=== PATIENT | female | born 1970 | race Caucasian/White ===

== ENCOUNTER → 2022-07-14 | Outpatient (CLI) | payer OTHER, SELFPAY ==
[2022-07-14 21:41] LABS: Cholesterol 209 mg/dL (200); High Density Lipoprotein 53 mg/dL; Triglycerides 108 mg/dL; Very Low Density Lipoprotein 22 mg/dL (5-40)
== END | disposition home or self-care (01) ==
PROVIDERS: PCP Nurse Practitioner; Referring Provider Nurse Practitioner; Visit Provider Nurse Practitioner
DX: E78.5 Hyperlipidemia, unspecified (principal)
CPT/HCPCS: 80061

== ENCOUNTER → 2022-12-21 | Outpatient (CLI) | payer OTHER, MEDICAID, SELFPAY ==
--- NOTE | 2022-12-21 07:07 | CT_ITS ---
STUDY: CT CHEST WITH CONTRAST REASON FOR EXAM: Female, 52 years old. Mass R lung 5mm R post costophrenic angle RADIATION DOSAGE (If Supplied By Facility): CTDIvol = ( 10.97 ) mGy, DLP = ( 400.14 ) mGycm TECHNIQUE: Transaxial imaging was performed following intravenous administration of IV 100mL Isovue-300. Multiplanar coronal and sagittal images were reformatted. Individualized dose optimization techniques were used for this CT. COMPARISON: No relevant priors. FINDINGS: CHEST Small benign-appearing bilateral axillary lymph nodes. Partially calcified 5 mm nodule in the posterior lateral aspect of the right lower lobe axial image #87. There is no demonstrated pleural abnormality. Normal heart and pericardium. No evidence of coronary artery calcification. Normal mediastinum. Normal hilar regions. Normal unenhanced pulmonary arteries. Normal aorta arch and descending thoracic aorta. There are multi-level degenerative changes of the thoracic spine. Diffuse fatty infiltration of the liver. CT/Chest WITH Contrast IMPRESSION: 5 mm partially calcified nodule in the posterior-lateral aspect of the right lower lobe. Diffuse fatty infiltration of the liver. Electronically Signed: Chemo Modi MD at 9:17 EDT ,
== END | disposition home or self-care (01) ==
LOC: CT 07:05
PROVIDERS: PCP Nurse Practitioner; Referring Provider Nurse Practitioner; Visit Provider Nurse Practitioner
DX: R91.8 Other nonspecific abnormal finding of lung field (principal)
CPT/HCPCS: 71260; Q9967

== ENCOUNTER → 2023-02-11 | Outpatient (CLI) | payer OTHER, MEDICAID, SELFPAY ==
[2023-02-11 22:48] LABS: Absolute Lymphocyte Count 1.69 X10^3/uL (0.83-4.51); Absolute Neutrophil Count 3.8 X10^3/uL (2.0-7.7); Basophil# 0.02 X10^3/uL; Basophil% 0.3 % (0-1); Eosinophil# 0.17 X10^3/uL; Eosinophils% 2.7 % (0-5); Hematocrit 41.7 % (37-47); Hemoglobin 13.6 g/dL (12.0-15.0); Lymphocyte # 1.69 X10^3/ul (0.83-4.51); Lymphocyte % 27.1 % (19-41); Mean Corp Hgb Conc 32.6 g/dL (32-36); Mean Corpuscular Hgb 32.2 pg (27.0-32.0); Mean Corpuscular Volume 98.6 fL (81-99); Mean Platelet Vol. 10.6 fl (6.2-12.0); Monocyte# 0.58 X10^3/uL; Monocyte% 9.3 % (0-10); NRBC Flagged by Analyzer 0 % (0-5); Neutrophil # 3.75 X10^3/uL (2.7-7.7); Neutrophil % 60.1 % (47-70); Platelet Count 260 K/mm3 (150-450); RBC Distribution Width CV 12.4 % (11.6-14.6); RBC Distribution Width SD 44.7 fl (35.1-43.9); Red Blood Count 4.23 M/mm3 (4.2-5.4); White Blood Count 6.2 K/mm3 (4.4-11.0)
[2023-02-11 23:13] LABS: ALB/GLOB Ratio 1.2 RATIO (0.9-2.4); AST(SGOT) 22 U/L (15-37); Alanine Aminotransfer ALT/SGPT 43 U/L (13-56); Albumin, Serum 4.1 g/dL (3.2-5.0); Alkaline Phosphatase 92 U/L (45-117); Anion Gap 4 (5-15); BUN 19 mg/dL (7-18); BUN/Creat Ratio 25.9 RATIO (10-20); Calcium,Total 9.1 mg/dL (8.5-10.1); Chloride 107 mmol/L (98-107); Cholesterol 196 mg/dL (200); Creatinine, Serum 0.73 mg/dL (0.55-1.02); EST Glomerular Filtration Rate 88 mL/min (>60); Est Glom Filt Rate - Afr Amer 106 mL/min (>60); Globulin 3.4 g/dL (2.2-4.2); Glucose 102 mg/dL (74-106); High Density Lipoprotein 50 mg/dL; Protein, Total 7.5 g/dL (6.4-8.2); Sodium Level 139 mmol/L (136-145); Thyroid Stim Hormone (TSH) 1.05 uIU/mL (0.358-3.74); Triglycerides 82 mg/dL; Very Low Density Lipoprotein 16 mg/dL (5-40)
== END | disposition home or self-care (01) ==
PROVIDERS: PCP Nurse Practitioner; Visit Provider Nurse Practitioner
DX: Z00.00 Encounter for general adult medical examination without abnormal findings (principal)
CPT/HCPCS: 80053; 80061; 84443; 85025

== ENCOUNTER → 2023-06-21 | Outpatient (CLI) | payer OTHER, SELFPAY ==
--- OUTSIDE RECORDS SUMMARY | 2023-06-21 21:54 | XMS RPT_ITS | CCD ---
Author Name Unknown Address [address] [place] [address] Organization [facility] Care Team Providers Care Brass Wind Instrument Maker Name Role Phone Unavailable Unavailable Max HAIR, Marifer Unavailable Unavail able Maxime WOLFE, Jose L Unavailable Unavailable Maxime WOLFE, Jose L Unavailable Unavailable Maxime WOLFE, Jose L Unavailable Unavailable Marifer Santana PA-C Unavailable Unavail able Maxime WOLFE, Jose L Unavailable Unavailable Wilmar Hancock MD Unavailable Unavailable Maxime WOLFE, Jose L Unavailable Unavailable Maxime WOLFE, Jose L Unavailable Unavailable Maxime WOLFE, Jose L Unavailable Unavailable Maxime WOLFE, Jose L Unavailable Unavailable Maxime WOLFE, Jose L Unavailable Unavailable Maxime WOLFE, Jose L Unavailable Unavailable Wilmar Hancock MD Unavailable Unavailable Wilmar Hancock MD Unavailable Unavailable Hudson Sullivan Attending Unavailable Albert Swartz Primary Care Unavailable Wilmar Hancock MD Unavailable Unavailable Maxime WOLFE, Jose L Unavailable Unavailable Maxime WOLFE, Jose L Unavailable Unavailable Patricia Zelaya MD Unavailable Chichi vailable Héctor Landry Jr, MD Unavailable Unavailable Héctor Landry Jr, MD Unavailable Unavailable Héctor Landry Jr, MD Unavailable Unavailable Héctor Landry Jr, MD Unavailable Unavailable Maxime WOLFE, Jose L Unavailable Unavailable Héctor Landry Jr, MD Unavailable Unavailable Wilmar Hancock MD Unavailable Unavailable Maxime WOLFE, Jose L Unavailable Unavailable Maxime WOLFE, Jose L Unavailable Unavailable Maxime WOLFE, Jose L Unavailable Unavailable Victorina Edwards Unavailable BilNuris rosario Unavailable Unavailabl e Victorina Edwards Unavailable [phone] Albert Swartz Primary Care Unavailable SHERIDAN ROWE Attending Unavailable Swartz, Albert Andrea Primary Care Unavailable Dominik, Ms. Victorina L Attending Unavailab le Dominik, Ms. Victorina L Primary Care Unavailab harlan Grant, Dr. Ya Attending Unavailabl e Dominik, Ms. Victorina L Primary Care Unavailab harlan Grant, Dr. Ya Admitting Unavailabl jimbo Grant, Dr. Ya Attending Unavailabl jimbo Grant, Dr. Ya Referring Unavailabl e Swartz, Albert Andrea Primary Care Unavailable Kyle, Ms. Rajan Attending Unavailable Dominik, Ms. Victorina L Primary Care Unavailab Nuris Pickens Attending Unavailtony Swartz MD, Jose L Unavailable Unavailable Dominik, Ms. Victorina L Primary Care Unavailab MD JARETT Guzman Attending Unavailable Dominik, Ms. Victorina L Primary Care Unavailab MD JARETT Guzman Attending Unavailable MD JARETT MAGANA Referring Unavailable Dominik, Ms. Victorina L Primary Care Unavailab MD JARETT Guzman Attending Unavailable MD JARETT MAGANA Referring Unavailable Sheridan Rowe Attending Unavailable Sheridan Rowe Referring Unavailable Maxime, Albert Mendez Primary Care Unavailable Sheridan Rowe Referring Unavailable Swartz, Albert Andrea Primary Care Unavailable Sheridan Rowe Attending Unavailable Dominik AIR DEFENSE ARTILLERY OFFICER-CLIENT SOLUTIONS DIRECTOR, Victorina L Primary Care Provide r Swartz, Jose L Primary Care Unavailable Swartz, Jose L Attending Unavailable Swartz, Jose L Primary Care Unavailable Swartz, Jose L Referring Unavailable Marifer Santana Attending Unavailable Patricia Zelaya Attending Unavaabebe angeles Swartz, Jose L Primary Care Unavailable Swartz, Jose L Attending Unavailable Swartz, Jose L Primary Care Unavailable Swartz, Jose L Primary Care Unavailable MassPatricia Zimmer Attending Unavaabebe labharlan Swartz, Jose L Primary Care Unavailable Héctor Landry Jr Attending Unavailable Swartz, Jose L Attending Unavailable Swartz, Jose L Primary Care Unavailable Wilmar Hancock Attending Unavailable Swartz, Jose L Primary Care Unavailable Swartz, Jose L Attending Unavailable Swartz, Jose L Primary Care Unavailable Swartz, Jose L Attending Unavailable Swartz, Jose L Primary Care Unavailable Swartz, Jose L Attending Unavailable Swartz, Jose L Primary Care Unavailable Swartz, Jose L Primary Care Unavailable Swartz, Jose L Attending Unavailable Swartz, Jose L Primary Care Unavailable Jose L Swartz Attending Unavailable JARETT MAGANA Referring Unavailable VICTORINA EDWARDS Primary Care Unavailable VICTORINA EDWARDS Primary Care Unavailable JOCELYNN GONG Attending Unavailable PRADEEP SEALS Referring Unavailable VICTORINA EDWARDS Primary Care Unavailable Max HAIR, Marifer Unavailable Unavail able Allergies Allergy Classification Reported Allergen(s) Allergy Type Date of Onset Reaction(s) Facility (20 sources) Amoxicillin / Clavulanate; Translations: [Augmentin TABS] Drug Allergy Vomiting, Rash [facility] [address] Work Phone: (10 sources) traMADol; Translations: [Tramadol] Drug Allergy [facility] [address] Work Phone: (1 source) Penicillin Drug Allergy Other [facility] (5 sources) Penicillins; Translations: [PENICILLINS] Propensity to adverse reactions Anaphylaxis [facility] Medications Current Medications Medication Drug Class(es) Dates Sig (Normalized) Sig (Original) acetaminophen 325 mg / HYDROcodone bitartrate 5 mg oral tablet (1 source) Opioid Agonist Start: 11-26-2022 End: 11-27-2022 take 1 tablet by mouth every six hours as needed hydrocodone-acetami nophen 5 mg-325 mg oral tablet ; 1 tab(s) orally every 6 hours, As Needed -for severe pain Quantity: 8 Refills: 0 Ordered: 26-Nov-2022 Nuris Wang Start: 26-Nov-2022 End: 27-Nov-2022 Generic Substitution Allowed Comments: Caution federal law prohibits the transfer of this drug to any person other than the person for whom it was prescribed.May cause drowsiness. Alcohol may intensify this effect. Use care when operating dangerous machinery.This product contains acetaminophen. Do not use with any other product containing acetaminophen to prevent possible liver damage.Using more of this medication than prescribed may cause serious breathing problems. Completed/Discontinued Medications Medication Drug Class(es) Dates Sig (Normalized) Sig (Original) atorvastatin 20 mg oral tablet (5 sources) HMG-CoA Reductase Inhibitor Start: 01-29-2022 End: 03-23-2022 take 1 tablet by mouth once daily atorvastatin 20 mg tablet take 1 tablet by oral route every day 20 MG - No Longer Active 24 hr buPROPion hydrochloride 150 mg extended release oral tablet (2 sources) Aminoketone Start: 08-29-2021 End: 10-03-2021 take 1 tablet by mouth once daily bupropion HCl XL 150 mg 24 hr tablet, extended release take 1 tablet by oral route every day 150 MG - No Longer Active busPIRone hydrochloride 7.5 mg oral tablet (7 sources) Start: 01-13-2022 End: 01-28-2022 take 1 tablet by mouth twice daily as needed for anxiety buspirone 7.5 mg tablet TAKE 1 TABLET BY MOUTH TWICE DAILY NEEDED FOR ANXIETY - No Longer Active Problems Active Problems Problem Classification Problem Date Documented Da te Episodic/Chronic Abdominal pain (20 sources) Pain in female pelvis; Translations: [Unspecified symptom associated with female genital organs] Onset: 11-26-2022 Episodic Acute bronchitis (3 sources) Acute bronchitis; Translations: [Acute bronchitis, unspecified] Onset: 05-27-2023 05-27-2023 Episodic Adjustment disorders (20 sources) Reaction to severe stress, unspecified Chronic Allergic reactions (2 sources) Allergy status to penicillin; Translations: [Allergy to penicillin] Onset: 11-27-2022 12-02-2022 Episodic Anxiety disorders (20 sources) Anxiety disorder, unspecified; Translations: [Anxiety] Chronic Asthma (20 sources) Mild persistent asthma, uncomplicated; Translations: [Mild persistent asthma without complication] Onset: 11-27-2022 Chronic Calculus of urinary tract (19 sources) Kidney stone; Translations: [Calculus of kidney] Onset: 11-27-2022 11-26-2022 Episodic Diabetes mellitus without complication (20 sources) Type 2 diabetes mellitus without complications; Translations: [Type 2 diabetes mellitus without complication, without long-term current use of insulin] Onset: 11-27-2022 Chronic Diabetes mellitus without complication (20 sources) Other abnormal glucose; Translations: [Elevated glucose] Episodic Disorders of lipid metabolism (20 sources) Other hyperlipidemia; Translations: [Other hyperlipidemia] Chronic Esophageal disorders (20 sources) Gastro-esophageal reflux disease without esophagitis; Translations: [Gastroesophageal reflux disease, esophagitis presence not specified] Chronic Genitourinary symptoms and ill-defined conditions (4 sources) Other symptoms and signs involving the genitourinary system; Translations: [Nocturia] Onset: 11-26-2022 03-28-2023 Episodic Intestinal obstruction without hernia (1 source) Fecal impaction; Translations: [Fecal impaction] Onset: 12-02-2022 Episodic Menopausal disorders (20 sources) Postmenopausal bleeding; Translations: [Postmenopausal bleeding] Chronic Menstrual disorders (20 sources) Absence of menstruation Chronic Open wounds of extremities (20 sources) Laceration without foreign body, left lower leg, subsequent encounter; Translations: [Laceration without foreign body, left ankle, subsequent encounter] Episodic Osteoarthritis (20 sources) Arthritis of right glenohumeral joint; Translations: [Arthropathy, unspecified, shoulder region] Onset: 04-04-2022 Chronic Other aftercare (1 source) 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; Translations: [nursing home (current) use of oral hypoglycemic drugs] Onset: 11-27-2022 Episodic Other aftercare (1 source) Long-term current use of oral hypoglycemic medication; Translations: [nursing home (current) use of oral hypoglycemic drugs] 12-02-2022 Episodic Other aftercare (1 source) Long-term current use of drug therapy; Translations: [Long-term (current) use of injectable non-insulin antidiabetic drugs] 12-02-2022 Episodic Other circulatory disease (20 sources) Elevated blood-pressure reading, without diagnosis of hypertension Episodic Other connective tissue disease (20 sources) Pain in right leg; Translations: [Pain in lateral right lower extremity] Episodic Other connective tissue disease (20 sources) Neuralgia and neuritis, unspecified; Translations: [Neuralgia] Episodic Other connective tissue disease (20 sources) Myalgia, unspecified site; Translations: [Muscle pain] Episodic Other connective tissue disease (20 sources) Pain in right hand; Translations: [Right hand pain] Episodic Other connective tissue disease (1 source) Other muscle spasm; Translations: [Other muscle spasm] Onset: 11-26-2022 Episodic Other diseases of kidney and ureters (1 source) Hydronephrosis with renal and ureteral calculous obstruction; Translations: [Hydronephrosis with renal and ureteral calculous obstruction] Onset: 11-26-2022 Episodic Other ear and sense organ disorders (20 sources) Otalgia, bilateral; Translations: [Otalgia of both ears] Episodic Other gastrointestinal disorders (20 sources) Other fecal abnormalities; Translations: [Positive colorectal cancer screening using Cologuard test] Episodic Other inflammatory condition of skin (20 sources) Lichen simplex chronicus Episodic Other liver diseases (20 sources) Fatty (change of) liver, not elsewhere classified; Translations: [Fatty liver] Chronic Other lower respiratory disease (20 sources) H/O: asthma; Translations: [Personal history of other diseases of respiratory system] Episodic Other lower respiratory disease (20 sources) Cough; Translations: [Cough] Episodic Other lower respiratory disease (20 sources) Cough Episodic Other lower respiratory disease (1 source) Solitary pulmonary nodule; Translations: [Solitary pulmonary nodule] Onset: 11-26-2022 Episodic Other nervous system disorders (20 sources) Other chronic pain Chronic Other nervous system disorders (20 sources) Attention and concentration deficit; Translations: [Difficulty concentrating] Chronic Other nervous system disorders (20 sources) Disturbance of skin sensation Episodic Other non-traumatic joint disorders (20 sources) Chronic pain of right upper limb; Translations: [Pain in joint, shoulder region] Episodic Other non-traumatic joint disorders (20 sources) Pain in right shoulder; Translations: [Chronic right shoulder pain] Episodic Other non-traumatic joint disorders (20 sources) Pain in unspecified joint; Translations: [Multiple joint pain] Episodic Other non-traumatic joint disorders (20 sources) Pain in right wrist; Translations: [Bilateral wrist pain] Episodic Other non-traumatic joint disorders (20 sources) Pain in left wrist Episodic Other non-traumatic joint disorders (10 sources) Shoulder pain; Translations: [Pain in joint, shoulder region] Episodic Other non-traumatic joint disorders (20 sources) Pain in left knee; Translations: [Chronic pain of left knee] Onset: 04-04-2022 Episodic Other nutritional; endocrine; and metabolic disorders (20 sources) Body mass index (BMI) 39.0-39.9, adult Onset: 12-02-2017 12-02-2017 Chronic Other nutritional; endocrine; and metabolic disorders (20 sources) Body mass index (BMI) 35.0-35.9, adult Chronic Other nutritional; endocrine; and metabolic disorders (20 sources) Body mass index (BMI) 34.0-34.9, adult Chronic Other nutritional; endocrine; and metabolic disorders (20 sources) Body mass index (BMI) 36.0-36.9, adult Chronic Other nutritional; endocrine; and metabolic disorders (20 sources) Body mass index (BMI) 37.0-37.9, adult Chronic Other nutritional; endocrine; and metabolic disorders (20 sources) Body mass index (BMI) 40.0-44.9, adult Chronic Other nutritional; endocrine; and metabolic disorders (2 sources) Body mass index (BMI) 33.0-33.9, adult Chronic Other nutritional; endocrine; and metabolic disorders (20 sources) Abnormal weight gain Episodic Other and delivery including normal (16 sources) Delivery normal; Translations: [Normal delivery] Episodic Past or Other Problems Problem Classification Problem Date Documented Da te Episodic/Chronic Other acquired deformities (1 source) Varus deformity, not elsewhere classified, left knee; Translations: [Varus deformity, not elsewhere classified, left knee] Onset: 04-04-2022 Episodic Other non-traumatic joint disorders (4 sources) Pain in left shoulder; Translations: [Pain in left shoulder] Onset: 04-14-2022 Episodic Other non-traumatic joint disorders (1 source) Effusion, left knee; Translations: [Effusion, left knee] Onset: 04-04-2022 Episodic Residual codes; unclassified (1 source) Sleep disorder, unspecified; Translations: [Sleep disorder, unspecified] Onset: 04-14-2022 Episodic Unclassified (16 sources) Finding of menstrual bleeding; Translations: [Menstruation] Results Test Name Value Interpretation Reference Range Facil ity Vital Signs Date Time Vital Sign Value Performing Clinician Shahram olsen 05-27-2023 16:43-0500 Body height 152.4 cm Jocelynn BEAL Work Phone: [facility] 05-27-2023 16:43-0500 Body mass index (BMI) [Ratio] 33.79 kg/m2 Jocelynn BEAL Work Phone: [facility] 05-27-2023 16:43-0500 Body temperature 97.81 [degF] Jocelynn BEAL Work Phone: [facility] 05-27-2023 16:43-0500 Body weight 78.47 kg Jocelynn Gong AIR DEFENSE ARTILLERY OFFICER-CLIENT SOLUTIONS DIRECTOR Work Phone: [facility] 05-27-2023 16:43-0500 Diastolic blood pressure 81 mm[Hg] Jocelynn Gong AIR DEFENSE ARTILLERY OFFICER-CLIENT SOLUTIONS DIRECTOR Work Phone: [facility] 05-27-2023 16:43-0500 Heart rate 92 /min Jocelynn Gong AIR DEFENSE ARTILLERY OFFICER-CLIENT SOLUTIONS DIRECTOR Work Phone: [facility] 05-27-2023 16:43-0500 Respiratory rate 16 /min Jocelynn Corralesta AIR DEFENSE ARTILLERY OFFICER-CLIENT SOLUTIONS DIRECTOR Work Phone: [facility] 05-27-2023 16:43-0500 SaO2% (BldA) [Mass fraction] 96 % Jocelynn Gong AIR DEFENSE ARTILLERY OFFICER-CLIENT SOLUTIONS DIRECTOR Work Phone: [facility] 05-27-2023 16:43-0500 Systolic blood pressure 118 mm[Hg] Jocelynn Gong AIR DEFENSE ARTILLERY OFFICER-CLIENT SOLUTIONS DIRECTOR Work Phone: [facility] 05-20-2023 09:19-0500 Body height 154.18 cm Marifer Santana PA-C [facility] 05-20-2023 09:19-0500 Body mass index (BMI) [Ratio] 33.66 kg/m2 Marifer Santana PA-C [facility] 05-20-2023 09:19-0500 Body temperature 97.3 [degF] Marifer Santana PA-C [facility] 05-20-2023 09:19-0500 Body weight 80.01 kg Marifer Santana PA-C [facility] 05-20-2023 09:19-0500 Diastolic blood pressure 82 mm[Hg] Marifer Santana PA-C [facility] 05-20-2023 09:19-0500 Heart rate 89 /min Marifer Santana PA-C [facility] 05-20-2023 09:19-0500 SaO2% (BldA) [Mass fraction] 98 % Marifer Santana PA-C [facility] 05-20-2023 09:19-0500 Systolic blood pressure 122 mm[Hg] Marifer Santana PA-C [facility] 12-03-2022 09:09-0400 Body mass index (BMI) [Ratio] 33.49 kg/m2 Victorinameli Edwards Work Phone: [facility] Work Phone: 12-03-2022 09:09-0400 Body surface area Derived from formula 1.79 m2 Victorinameli Edwards Work Phone: [facility] Work Phone: 12-03-2022 09:09-0400 Body weight 80.4 kg Victorinameli Edwards Work Phone: [facility] Work Phone: 11-27-2022 10:30-0400 Body height 153 cm Jarett Grant MD MPH Work Phone: [facility] 11-27-2022 10:30-0400 Body mass index (BMI) [Ratio] 33.66 kg/m2 Jarett Garnt MD MPH Work Phone: [facility] 11-27-2022 10:30-0400 Body weight 78.8 kg Jarett Grant MD MPH Work Phone: [facility] 11-26-2022 16:30-0400 Diastolic blood pressure 67 mm[Hg] Victorina Edwards Other Phone: [facility] 11-26-2022 16:30-0400 Heart rate 80 /min Victorina Edwards Other Phone: [facility] 11-26-2022 16:30-0400 Respiratory rate 14 /min Victorina Edwards Other Phone: [facility] 11-26-2022 16:30-0400 SaO2% (BldA) [Mass fraction] 97 % Victorina Edwards Other Phone: [facility] 11-26-2022 16:30-0400 Systolic blood pressure 129 mm[Hg] Victorina Edwards Other Phone: [facility] 11-26-2022 13:31-0400 Body height 152.4 cm Victorina Edwards Other Phone: [facility] 11-26-2022 13:31-0400 Body temperature 97.7 [degF] Victorina Edwards Other Phone: [facility] 11-26-2022 13:31-0400 Body weight 78.5 kg Victorina Edwards Other Phone: [facility] 05-13-2022 08:44-0500 Body temperature 97.1 [degF] Sheridan Rowe APRN-CLIENT SOLUTIONS DIRECTOR Work Phone: [facility] [address] Work Phone: 04-14-2022 10:51-0400 Body height 154.94 cm Sheridan Rowe APRN-CLIENT SOLUTIONS DIRECTOR Work Phone: [facility] [address] Work Phone: 04-14-2022 10:51-0400 Body mass index (BMI) [Ratio] 36.09 kg/m2 Sheridan Rowe APRN-CLIENT SOLUTIONS DIRECTOR Work Phone: [facility] [address] Work Phone: 04-14-2022 10:51-0400 Body surface area Derived from formula 1.85 m2 Sheridan Rowe APRN-CLIENT SOLUTIONS DIRECTOR Work Phone: [facility] [address] Work Phone: 04-14-2022 10:51-0400 Body temperature 97.6 [degF] Sheridan Rowe APRN-CLIENT SOLUTIONS DIRECTOR Work Phone: [facility] [address] Work Phone: 04-14-2022 10:51-0400 Body weight 86.64 kg Sheridan Rowe APRN-CLIENT SOLUTIONS DIRECTOR Work Phone: [facility] [address] Work Phone: 01-28-2022 10:42-0400 Body height 154.18 cm Jose L Swartz MD [facility] 01-28-2022 10:42-0400 Body mass index (BMI) [Ratio] 36.64 kg/m2 Jose L Swartz MD [facility] 01-28-2022 10:42-0400 Body temperature 96.8 [degF] Jose L Swartz MD [facility] 01-28-2022 10:42-0400 Body weight 87.09 kg Jose L Swartz MD [facility] 01-28-2022 10:42-0400 Diastolic blood pressure 82 mm[Hg] Jose L Swartz MD [facility] 01-28-2022 10:42-0400 Heart rate 88 /min Jose L Swartz MD [facility] 01-28-2022 10:42-0400 SaO2% (BldA) [Mass fraction] 94 % Jose L Swartz MD [facility] 01-28-2022 10:42-0400 Systolic blood pressure 135 mm[Hg] Jose L Swartz MD [facility] 10-30-2021 16:00-0400 Body height 154.18 cm Jose L Swartz MD [facility] 10-30-2021 16:00-0400 Body mass index (BMI) [Ratio] 36.75 kg/m2 Jose L Swartz MD [facility] 10-30-2021 16:00-0400 Body temperature 97.5 [degF] Jose L Swartz MD [facility] 10-30-2021 16:00-0400 Body weight 87.36 kg Jose L Swartz MD [facility] 10-30-2021 16:00-0400 Diastolic blood pressure 60 mm[Hg] Jose L Swartz MD [facility] 10-30-2021 16:00-0400 Heart rate 86 /min Jose L Swartz MD [facility] 10-30-2021 16:00-0400 SaO2% (BldA) [Mass fraction] 96 % Jose L [facility]z MD [facility] 10-30-2021 16:00-0400 Systolic blood pressure 125 mm[Hg] Jose L Swartz MD [facility] 05-28-2021 09:47-0500 Body height 154.94 cm Yessi Leger DO Work Phone: [employer] [address] Work Phone: 05-28-2021 09:47-0500 Body mass index (BMI) [Ratio] 36.16 kg/m2 Yessi Edwardsa DO Work Phone: [facility] [address] Work Phone: 05-28-2021 09:47-0500 Body surface area Derived from formula 1.85 m2 Yessi Edwardsa DO Work Phone: [facility] [address] Work Phone: 05-28-2021 09:47-0500 Body temperature 97.1 [degF] Yessi Edwardsa DO Work Phone: [facility] [address] Work Phone: 05-28-2021 09:47-0500 Body weight 86.81 kg Yessi Leger DO Work Phone: [facility] [address] Work Phone: 05-28-2021 09:47-0500 Diastolic blood pressure 86 mm[Hg] Yessi Edwardsa DO Work Phone: [facility] [address] Work Phone: 05-28-2021 09:47-0500 Systolic blood pressure 128 mm[Hg] Yessi Edwardsa DO Work Phone: [facility] [address] Work Phone: 04-23-2021 09:33-0500 Body height 156.84 cm Maikol Fischer DO Work Phone: [facility] [address] Work Phone: 04-23-2021 09:33-0500 Body mass index (BMI) [Ratio] 34.63 kg/m2 Maikol Fischer DO Work Phone: [facility] [address] Work Phone: 04-23-2021 09:33-0500 Body surface area Derived from formula 1.86 m2 Maikol Fischer DO Work Phone: [facility] [address] Work Phone: 04-23-2021 09:33-0500 Body temperature 97.7 [degF] Maikol Fiscehr DO Work Phone: [facility] [address] Work Phone: 04-23-2021 09:33-0500 Body weight 85.19 kg Maikol Fischer DO Work Phone: [facility] [address] Work Phone: 03-20-2021 15:49-0400 Body height 156.21 cm Maikol Fischer DO Work Phone: [facility] [address] Work Phone: 03-20-2021 15:49-0400 Body mass index (BMI) [Ratio] 33.83 kg/m2 Maikol Fischer DO Work Phone: [facility] [address] Work Phone: 03-20-2021 15:49-0400 Body surface area Derived from formula 1.83 m2 Maikol Fischer DO Work Phone: [facility] [address] Work Phone: 03-20-2021 15:49-0400 Body temperature 98.2 [degF] Maikol Fischer DO Work Phone: [facility] [address] Work Phone: 03-20-2021 15:49-0400 Body weight 82.56 kg Maikol Fischer DO Work Phone: [facility] [address] Work Phone: 03-20-2021 15:49-0400 Diastolic blood pressure 72 mm[Hg] Maikol Fischer DO Work Phone: [facility] [address] Work Phone: 03-20-2021 15:49-0400 Heart rate 79 /min Maikol Fischer DO Work Phone: [facility] [address] Work Phone: 03-20-2021 15:49-0400 Systolic blood pressure 139 mm[Hg] Maikol Fischer DO Work Phone: [facility] 300 Work Phone: 03-04-2021 15:28-0400 Body height 156.21 cm Maikol Fischer DO Work Phone: [facility] 300 Work Phone: 03-04-2021 15:28-0400 Body mass index (BMI) [Ratio] 34.04 kg/m2 Maikol Fischer DO Work Phone: [facility] 300 Work Phone: 03-04-2021 15:28-0400 Body surface area Derived from formula 1.83 m2 Maikol Fischer DO Work Phone: [facility] 300 Work Phone: 03-04-2021 15:28-0400 Body temperature 97.5 [degF] Maikol Fischer DO Work Phone: [facility] 300 Work Phone: 03-04-2021 15:28-0400 Body weight 83.07 kg Maikol Fischer DO Work Phone: [facility] 300 Work Phone: Encounters Encounter Date Encounter Type Care Provider Facility Start: 05-27-2023 End: 05-27-2023 ambulatory [facility] Start: 05-27-2023 End: 05-27-2023 Office outpatient visit 15 minutes Jocelynn BEAL Work Phone: [facility] Procedures Date Procedure Procedure Detail Performing Clinician Start: 05-27-2023 POCT INFLUENZA A/B JARETT GRANT Start: 05-27-2023 POCT RESPIRATORY SYN CYTIAL VIRUS JARETT GRANT Start: 05-27-2023 POCT BD VERITOR COVID-19 AG JARETT GRANT Start: 05-27-2023 POCT GROUP A STREPTO COCCUS, PCR JARETT GRANT Start: 05-27-2023 End: 05-27-2023 Iaadiadoo influenza Jocelynn MORAN INFORMATION TECHNOLOGY ARCHITECT Work Phone: Start: 05-27-2023 SARS-CoV-2 (COVID-19 ) Ag [Presence] in Respiratory specimen by Rapid immunoassay Jocelynn BEAL Work Phone: Start: 05-20-2023 End: 05-20-2023 Arthrocentesis aspir&/inj small jt/bursa w/o us Marifer Santana PA-C Start: 05-20-2023 End: 05-20-2023 BP scrn perf rec interval Marifer irving PA-C Start: 05-20-2023 End: 05-20-2023 Calc BMI abv up kenneth f/u Marifer irving PA-C Start: 05-20-2023 End: 05-20-2023 Docrev cur meds by ketty Santana PA-C Start: 05-20-2023 End: 05-20-2023 Mammography Marifer Riley A-C Start: 05-20-2023 End: 05-20-2023 Taking statin or rec'd order Marifer Santana PA-C Start: 05-20-2023 End: 05-20-2023 Tobacco Screening, Non-smoker Marifer Santana PA-C Start: 05-20-2023 End: 05-20-2023 Triamcinolone acet inj JUVE barnett PA-C Start: 03-31-2023 XR ABDOMEN 1 VIEW JARETT FRANKLIN GRANT Start: 03-18-2023 US RENAL COMPLETE JARETT FRANKLIN GRANT Start: 03-18-2023 Us retroperitoneal r eal time w/image complete Jarett Grant MD MPH Work Phone: Start: 11-27-2022 X-ray urinary tract exam with contrast material Jarett Grant MD MPH Work Phone: Start: 11-27-2022 SURGICAL PATHOLOGY RESULTS Jarett Grant MD MPH Work Phone: Start: 11-27-2022 Glucose [Mass/volume ] in Serum or Plasma Jarett Grant MD MPH Work Phone: Start: 10-12-2022 Mammography Akira 1 Start: 01-28-2022 End: 01-28-2022 Behav assmt w/score & docd/stand instrument Jose L Swartz MD Start: 01-28-2022 End: 01-28-2022 BP scrn perf rec interval Jose L Swartz MD Start: 01-28-2022 End: 01-28-2022 Collection venous blood venipuncture Jose L Swartz MD Start: 01-28-2022 End: 01-28-2022 Docrev cur meds by ketty Swartz MD Start: 01-28-2022 End: 01-28-2022 HbA1c For DM >=7 And< 8 Jose L Swartz MD Start: 01-28-2022 End: 01-28-2022 Hemoglobin glycosylated a1c Jose L Swartz MD Start: 01-28-2022 End: 01-28-2022 LDL For DM =or>130mg/dl Jose L Swartz MD Start: 01-28-2022 End: 01-28-2022 Lipid panel Jose L Swartz MD Start: 01-28-2022 End: 01-28-2022 Mammography Jose L Swartz MD Start: 01-28-2022 End: 01-28-2022 Scr dep neg, no plan reqd Jose L Swartz MD Start: 01-28-2022 End: 01-28-2022 Tobacco Screening, Non-smoker Jose L Swartz MD Start: 01-28-2022 End: 01-28-2022 Urine albumin quantitative Jose L Swartz MD Start: 10-30-2021 End: 10-30-2021 Arthrocentesis aspir&/inj small jt/bursa w/o us Marifer Santana PA-C Start: 10-30-2021 End: 10-30-2021 BP scrn perf rec interval Marifer irving PA-C Start: 10-30-2021 End: 10-30-2021 Calc BMI abv up kenneth f/u Marifer irving PA-C Start: 10-30-2021 End: 10-30-2021 Docrev cur meds by ketty Santana PA-C Start: 10-30-2021 End: 10-30-2021 Therapeutic prophylactic/dx injection subq/im Marifer Santana PA-C Start: 10-30-2021 End: 10-30-2021 Triamcinolone acet inj NOS Marifer barnett PA-C Start: 10-03-2021 End: 10-03-2021 Docrev cur meds by ketty Swartz MD Start: 10-03-2021 End: 10-03-2021 Tobacco Screening, Non-smoker Jose L Swartz MD Start: 08-29-2021 End: 08-29-2021 Docrev cur meds by ketty Santana PA-C Start: 08-29-2021 End: 08-29-2021 Taking statin or rec'd order Marifer Santana PA-C Start: 08-29-2021 End: 08-29-2021 Tobacco Screening, Non-smoker Marifer Santana PA-C Start: 05-01-2021 End: 05-01-2021 BP scrn perf rec interval Marifer irving PA-C Start: 05-01-2021 End: 05-01-2021 Calc BMI abv up kenneth f/u Marifer irving PA-C Start: 05-01-2021 End: 05-01-2021 Collection venous blood venipuncture Marifer Santana PA-C Start: 05-01-2021 End: 05-01-2021 Docrev cur meds by ketty Santana PA-C Start: 05-01-2021 End: 05-01-2021 HbA1c For DM <7.0% Marifer Strattonbarneyericka P A-C Start: 05-01-2021 End: 05-01-2021 Hemoglobin glycosylated a1c Marifer da silvabenoit PA-C Start: 04-29-2021 End: 04-29-2021 Docrev cur meds by [facility] italo Santana PA-C Start: 04-29-2021 End: 04-29-2021 Pt inelig BMI calculation Marifer irving PA-C Start: 04-29-2021 End: 04-29-2021 Tobacco Screening, Non-smoker Marifer Strattonbarneyericka PA-C Start: 02-04-2021 End: 02-04-2021 Behav assmt w/score & docd/stand instrument Marifer Strattonbarneyericka PA-C Start: 02-04-2021 End: 02-04-2021 BP scrn perf rec interval Marifer irving PA-C Start: 02-04-2021 End: 02-04-2021 Calc BMI abv up kenneth f/u Marifer irving PA-C Start: 02-04-2021 End: 02-04-2021 Docrev cur meds by [facility] Marifer ORNELAS-C Start: 02-04-2021 End: 02-04-2021 HbA1c For DM >=7 And< 8 Marifer Strattonbarneylenore an PA-C Start: 02-04-2021 End: 02-04-2021 LDL For DM 100-129mg/dl Marifer Strattonbarneylenore an PA-C Start: 02-04-2021 End: 02-04-2021 Scr dep neg, no plan reqd Marifer irving PA-C Start: 02-04-2021 End: 02-04-2021 Tobacco Screening, Non-smoker Marifer Santana PA-C Start: 01-10-2021 End: 01-10-2021 BP scrn perf rec interval Marifer villafanaan PA-C Start: 01-10-2021 End: 01-10-2021 Calc BMI abv up kenneth f/u Marifer villafanaan PA-C Start: 01-10-2021 End: 01-10-2021 Docrev cur meds by ketty Santana PA-C Start: 01-10-2021 End: 01-10-2021 Taking statin or rec'd order Marifer Santana PA-C Start: 01-10-2021 End: 01-10-2021 Tobacco Screening, Non-smoker Marifer Santana PA-C Start: 12-20-2020 End: 12-20-2020 Arthrocentesis aspir&/inj major jt/bursa w/o us Marifer Santana PA-C Start: 12-20-2020 End: 12-20-2020 BP scrn perf rec interval Marifer irving PA-C Start: 12-20-2020 End: 12-20-2020 Calc BMI abv up kenneth f/u Marifer irving PA-C Start: 12-20-2020 End: 12-20-2020 Docrev cur meds by ketty Santana PA-C Start: 12-20-2020 End: 12-20-2020 Therapeutic prophylactic/dx injection subq/im Marifer Santana PA-C Start: 12-20-2020 End: 12-20-2020 Tobacco Screening, Non-smoker Marifer Santana PA-C Start: 12-20-2020 End: 12-20-2020 Triamcinolone acet inj NOS Marifer barnett PA-C Start: 12-20-2019 End: 12-20-2019 Behav assmt w/score & docd/stand instrument Marifer Santana PA-C Start: 12-20-2019 End: 12-20-2019 Docrev cur meds by ketty Santana PA-C Start: 12-20-2019 End: 12-20-2019 HbA1c For DM <7.0% Marifer Leonard Start: 12-20-2019 End: 12-20-2019 LDL For DM 100-129mg/dl Marifer laboy PA-C Start: 12-20-2019 End: 12-20-2019 Mammography Marifer Leonard Start: 12-20-2019 End: 12-20-2019 PAP Reviewed Marifer Leonard Start: 12-20-2019 End: 12-20-2019 Pt inelig BMI calculation Marifersheila Strattonwhitley irving PA-C Start: 12-20-2019 End: 12-20-2019 Scr dep neg, no plan reqd Marifer Cortez irving PA-C Start: 12-20-2019 End: 12-20-2019 Tobacco Screening, Non-smoker Marifer ORNELAS-C Start: 01-11-2019 End: 01-11-2019 Assay of ferritin Marifer Riley A-C Start: 01-11-2019 End: 01-11-2019 Collection venous blood venipuncture Marifer ORNELAS-C Start: 01-11-2019 End: 01-11-2019 Hepatic function panel Marifer frausto PA-C Start: 12-22-2018 End: 12-22-2018 Collection venous blood venipuncture Marifer ORNELAS-C Start: 12-22-2018 End: 12-22-2018 Glucose quantitative blood xcpt reagent strip Marifer Santana PA-C Start: 12-22-2018 End: 12-22-2018 HbA1c For DM 7.0-9.0% Marifer ORNELAS-C Start: 12-14-2018 End: 12-14-2018 HbA1c For DM 7.0-9.0% Marifer ORNELAS-C Start: 12-13-2018 End: 12-13-2018 Assay of thyroid stimulating hormone tsh Marifer ORNELAS-C Start: 12-13-2018 End: 12-13-2018 BP scrn perf rec interval Marifer irving PA-C Start: 12-13-2018 End: 12-13-2018 Calc BMI abv up kenneth f/u Marifer Cortez irving PA-C Start: 12-13-2018 End: 12-13-2018 Collection venous blood venipuncture Marifer ORNELAS-C Start: 12-13-2018 End: 12-13-2018 Depression screen annual Marifer ORNELAS-C Start: 12-13-2018 End: 12-13-2018 Docrev cur meds by ketty ORNELAS-Tanner Start: 12-13-2018 End: 12-13-2018 LDL For DM =or>130mg/dl Marifer laboy PA-C Start: 12-13-2018 End: 12-13-2018 Lipid panel Marifer Santana Rosemary A-C Start: 12-13-2018 End: 12-13-2018 Mammography Marifer Santana Rosemary A-C Start: 12-13-2018 End: 12-13-2018 Scr dep neg, no plan reqd Marifer Toro broderickan PA-C Start: 12-13-2018 End: 12-13-2018 Tobacco Screening, Non-smoker Marifersheila Strattontomasa PA-C Start: 09-16-2018 End: 09-16-2018 Iadna streptococcus group a amplified probe tq Marifer Strattontomasa PA-C Start: 09-16-2018 End: 09-16-2018 Obtaining screen pap smear Marifer Strattonbarney barnett PA-C Start: 12-02-2017 End: 12-02-2017 BP scrn perf rec interval Marifer Strattonbarneyjimbo maria fernanda PA-C Start: 12-02-2017 End: 12-02-2017 Calc BMI abv up kenneth f/u Marifer Strattonbarneyjimbo maria fernanda PA-C Start: 12-02-2017 End: 12-02-2017 Depression screen annual Marifer Strtatonbarneyjacky ronaldo PA-C Start: 12-02-2017 End: 12-02-2017 Docrev cur meds by ketty Larryee Max PA-C Start: 12-02-2017 End: 12-02-2017 Flu immunize order/admin Marifer higgins PA-C Start: 12-02-2017 End: 12-02-2017 LDL For DM =or>130mg/dl Marifersheila Strattonfiorella an PA-C Start: 12-02-2017 End: 12-02-2017 PAP Reviewed Marifer Santana Rosemary A-C Start: 12-02-2017 End: 12-02-2017 Scr dep neg, no plan reqd Marifer Strattonbarneyjimbo rman PA-C Start: 12-02-2017 End: 12-02-2017 Tobacco Screening, Non-smoker Marifer Max PA-C Start: 12-18-2016 End: 12-18-2016 Iadna streptococcus group a amplified probe tq Marifer Santana PA-C Start: 05-12-2016 End: 05-12-2016 Blood count complete auto&auto difrntl wbc Marifer Santana PA-C Start: 05-12-2016 End: 05-12-2016 BP scrn perf rec interval Marifer Cortez irving PA-C Start: 05-12-2016 End: 05-12-2016 Calc BMI abv up kenneth f/u Marifer Strattonwhitley irving PA-C Start: 05-12-2016 End: 05-12-2016 Collection venous blood venipuncture Marifer ORNELAS-C Start: 05-12-2016 End: 05-12-2016 Colonoscopy Reviewed Marifer Santana PA-C Start: 05-12-2016 End: 05-12-2016 Cano BP less 90 Marifer Riley A-C Start: 05-12-2016 End: 05-12-2016 Docrev cur meds by ketty ORNELAS-C Start: 05-12-2016 End: 05-12-2016 LDL For DM =or>130mg/dl Marifer laboy PA-C Start: 05-12-2016 End: 05-12-2016 Mammography Marifer Riley A-C Start: 05-12-2016 End: 05-12-2016 PAP Reviewed Marifer Riley A-C Start: 05-12-2016 End: 05-12-2016 Pneuomvax Previously Given Marifer ORNELAS-C Start: 05-12-2016 End: 05-12-2016 Scr dep neg, no plan reqd Marifer irving PA-C Start: 05-12-2016 End: 05-12-2016 Sys BP less 140 Marifer Santana P A-C Start: 05-12-2016 End: 05-12-2016 Tobacco Screening, Non-smoker Marifer Santana PA-C Start: 04-09-2016 End: 04-09-2016 Obtaining screen pap smear Marifer barnett PA-C Start: 04-09-2016 End: 04-09-2016 Smr prim src wet mount nfct agt Marifer Santana PA-C Start: 04-08-2016 End: 04-08-2016 Assay of magnesium Marifer Santana P A-C Start: 04-08-2016 End: 04-08-2016 Collection venous blood venipuncture Marifer Santana PA-C Start: 03-04-2015 End: 03-04-2015 Obtaining screen pap smear Marifer barnett MARCELTanner Start: 03-04-2015 End: 03-04-2015 Smr prim src wet mount nfct agt Marifer Santana JOHNSONJalen Start: 12-05-2014 End: 12-05-2014 Medical Records Marifer Riley A-C Start: 05-14-2014 End: 05-14-2014 Basic metabolic panel calcium total Marifer Santana JOHNSON-Tanner Start: 05-14-2014 End: 05-14-2014 Collection venous blood venipuncture Marifer Santana JOHNSONJalen Start: 03-28-2014 End: 03-28-2014 Medical Records Marifer Riley A-C Start: 02-26-2014 End: 02-26-2014 Obtaining screen pap smear Marifer barnett LAXMI Arthroscopy of knee Maikol Fischer DO Work Phone: Plan of Treatment Date Care Activity Detail Author Start: 04-12-2029 DTaP/Tdap/Td Vaccines (3 - Td or Tdap) DTaP/Tdap/Td Vaccines (3 - Td or Tdap) [facility] Start: 10-13-2023 Screening for malignant neoplasm of breast Mammogram [facility] Start: 10-13-2023 End: 10-13-2023 Patient encounter procedure 10/13/2023 10:45 AM EDT Office Visit [place] [id number] [id number] Pradeep Seals MD [address] [place] [id number] [facility] Start: 03-22-2023 FUV, Provider: Jarett Magana, Status: Pen, Time: 3:00 PM FUV, Provider: Jarett Magana, Status: Pen, Time: 3:00 PM [id number] Work Phone: Start: 02-12-2023 Influenza vaccination Influenza Vaccine (#1) [facility] Start: 01-29-2023 [facility] [employer] Work Phone: Start: 12-03-2022 CYSTOSCOPY, Provider: Jarett Magana, Status: Pen, Time: 8:45 AM CYSTOSCOPY, Provider: Jarett Magana, Status: Pen, Time: 8:45 AM [id number] Work Phone: Start: 08-21-2022 Amanda Gill [employer] Work Phone: Start: 08-03-2022 Amanda Gill [employer] Work Phone: Start: 07-24-2022 End: 07-24-2022 Medical [employer] Start: 06-04-2022 INJECTION, Provider: Sheridan Rowe, Status: Pen, Time: 1:00 PM INJECTION, Provider: Sheridan Rowe, Status: Pen, Time: 1:00 PM [facility] 300 Work Phone: Start: 05-13-2022 FUV, Provider: Sheridan Rowe, Status: Pen, Time: 8:30 AM FUV, Provider: Sheridan Rowe, Status: Pen, Time: 8:30 AM [facility] 300 Work Phone: Start: 05-11-2022 FUV, Provider: Sheridan Rowe, Status: Pen, Time: 11:30 AM FUV, Provider: Sheridan Rowe, Status: Pen, Time: 11:30 AM [facility] 300 Work Phone: Start: 04-30-2022 Amanda Gill [employer] Work Phone: Start: 03-31-2022 Patient referral Referrals: Orthopedics. [facility]. [facility] [employer] Start: 03-17-2022 Patient referral Referrals: Genrl Surg. Dr. Sullivan. [facility] [employer] [facility] Start: 01-28-2022 Patient referral [facility] [employer] Start: 01-15-2022 Amanda Gill Medical [facility] [employer] Work Phone: Start: 11-14-2021 Amanda Gill Medical [employer] Work Phone: Start: 10-03-2021 Amanda Gill Medical [facility] [employer] [employer] [facility] [facility] Work Phone: Start: 09-11-2021 FUV, Provider: Maikol Fischer, Status: Pen, Time: 9:30 AM FUV, Provider: Maikol Fischer, Status: Pen, Time: 9:30 AM [facility] Work Phone: Start: 07-30-2021 COVID-19 Vaccine (2 - Booster for Kellen series) COVID-19 Vaccine (2 - Booster for Kellen series) [facility] Start: 07-24-2021 FUV, Provider: Maikol Fischer, Status: Pen, Time: 9:30 AM FUV, Provider: Maikol Fischer, Status: Pen, Time: 9:30 AM [facility] 300 Work Phone: Start: 06-16-2021 FUV, Provider: Yessi Leger, Status: Pen, Time: 8:45 AM FUV, Provider: Yessi Leger, Status: Pen, Time: 8:[address] Work Phone: Start: 05-01-2021 [facility] Start: 05-01-2021 Patient referral Referrals: Gynecology. Dr. Solange Leger. [facility] [employer] Start: 03-20-2021 FUV, Provider: Maikol Fischer, Status: Pen, Time: 3:30 PM FUV, Provider: Maikol Fischer, Status: Pen, Time: 3:30 PM [facility] Work Phone: Start: 02-04-2021 Patient referral Referrals: Orthopedics. Maikol Fischer [facility]. Eval[facility] and [facility] [employer] Start: 02-04-2021 MICROALBUMIN ([id number]), Sent on: [facility] Start: 02-03-2021 PTRECHADUL, Provider: Jona Connolly, Status: Pen, Time: 4:15 PM PTRECHADUL, Provider: Jona Connolly, Status: Pen, Time: 4:15 PM [facility]: Start: 01-30-2021 PTFUADULT4, Provider: Shay Dotson, Status: Pen, Time: 4:15 PM PTFUADULT4, Provider: Shay Dotson, Status: Pen, Time: 4:15 PM [facility] Work [facility]: Start: 01-28-2021 PTFUADULT4, Provider: Shay Dotson, Status: Pen, Time: 4:15 PM PTFUADULT4, Provider: Shay Dotson, Status: Pen, Time: 4:15 PM [facility] Work [facility]: Start: 01-22-2021 PTFUADULT4, Provider: Isis Clark, Status: Pen, Time: 10:45 AM PTFUADULT4, Provider: Isis Clark, Status: Pen, Time: 10:45 AM [facility] Work Phone: Start: 01-20-2021 PTFUADULT4, Provider: Dhara Jefferson, Status: Pen, Time: 2:00 PM PTFUADULT4, Provider: Dhara Jefferson, Status: Pen, Time: 2:00 PM [facility] Work Phone: Start: 01-15-2021 PTFUADULT4, Provider: Cheyanne Self, Status: Pen, Time: 11:30 AM PTFUADULT4, Provider: Cheyanne Self, Status: Pen, Time: 11:30 AM [facility] Work Phone: Start: 01-13-2021 PTFUADULT4, Provider: Dhara Jefferson, Status: Pen, Time: 10:30 AM PTFUADULT4, Provider: Dhara Jefferson, Status: Tunde, Time: 10:30 AM [facility] Work Phone: Start: 12-20-2020 Patient referral Referrals: Physical Therapy. Evaluate and treat [facility] [employer] Start: 12-20-2019 Patient referral SCR MAMMO BI INCL CAD [facility] [employer] Start: 12-20-2019 Microalb/Creat Ratio, Neftaly Ur ([id number]), Sent on: [facility] [employer] Start: 12-13-2018 Patient referral Referrals: Surgery. [place] [facility] [email or web address] [facility] Start: 12-02-2017 Lifestyle education regarding diet Lifestyle education regarding diet [facility] [email or web address] [facility] Start: 05-12-2016 Patient referral X-ray Of Wrist Bilateral [facility] [employer] Start: 01-12-2014 Patient referral Screening Mammo Bilateral [facility] [email or web address] [facility] Start: 1989 Screening for malignant neoplasm of cervix [facility] Start: 1987 Urine screening for protein Diabetes: Urine Protein Screening [facility] Start: 1986 Hepatitis C screening Hepatitis C Screening [facility] Start: 1978 Diabetic foot examination Diabetes: Foot Exam [facility] Start: 1978 Glaucoma screening Diabetes: Retinopathy Screening [facility] Start: 1974 Pneumococcal Vaccine: Pediatrics (0 to 5 Years) and At-Risk Patients (6 to 64 Years) (1 - PCV) Pneumococcal Vaccine: Pediatrics (0 to 5 Years) and At-Risk Patients (6 to 64 Years) (1 - PCV) [facility] Start: 1969 MMR Vaccines (1 of 1 - Standard series) MMR Vaccines (1 of 1 - Standard series) [facility] Start: 1968 Hemoglobin A1c measurement Diabetes: Hemoglobin A1C [facility] Start: 1968 Hepatitis B Vaccines (1 of 3 - 3-dose series) Hepatitis B Vaccines (1 of 3 - 3-dose series) [facility] Start: 1968 HIV screening HIV Screening [facility] Start: 1968 Lipid panel Lipid Panel [facility] Start: 1968 Screening for malignant neoplasm of colon [facility] Start: 1968 Yearly Adult Physical Yearly Adult Physical [facility] Immunizations Immunization Date Immunization Notes Care Provider Brook flahertylisset 12-17-2021 zoster vaccine, ck [facility] Payers Date Payer Category Payer Unknown [id number] 2019 Medicaid [id number] 2019 Unknown 1968 Unknown [id number] 2.16.8 40.1.731706.3.579.2.9 1968 Unknown [id number] 2.16.8 40.1.028427.3.579.2.9 1968 Unknown [id number] 2.16.8 40.1.197196.3.579.2.9 1968 Unknown [id number] 2.16.8 40.1.749364.3.579.2.1069 1968 Unknown [id number] 2.16.8 40.1.718333.3.579.2.9 1968 Unknown [id number] 2.16.8 40.1.546598.3.579.2.9 1968 Unknown [id number] 2.16. 840.1.840432.3.579.2.356 1968 Unknown [id number] 2.16. 840.1.468994.3.579.2.356 1968 Unknown [id number] 2.16. 840.1.240942.3.579.2.356 1968 Unknown [id number] 2.16. 840.1.161573.3.579.2.356 1968 Unknown [id number] 2.16. 840.1.023452.3.579.2.356 1968 Unknown [id number] 2.16.84 0.1.120133.3.579.2.1078 1968 Unknown [id number] 2.16.84 0.1.478199.3.579.2.1078 1968 Unknown [id number] 2.16.84 0.1.649716.3.579.2.1078 1968 Unknown [id number] 2.16.84 0.1.384355.3.579.2.1078 1968 Unknown [id number] 2.16.84 0.1.981838.3.579.2.1078 1968 Unknown [id number] 2.16.84 0.1.753326.3.579.2.1078 1968 Unknown [id number] 2.16.84 0.1.653097.3.579.2.1078 1968 Unknown [id number] 2.16.84 0.1.311603.3.579.2.1078 1968 Unknown [id number] 2.16.84 0.1.401516.3.579.2.1078 1968 Unknown [id number] 2.16.84 0.1.487867.3.579.2.1078 1968 Unknown [id number] 2.16.84 0.1.450392.3.579.2.1078 1968 Unknown [id number] 2.16.84 0.1.997762.3.579.2.1078 1968 Unknown [id number] 2.16.84 0.1.397977.3.579.2.1242 1968 Unknown [id number] 2.16.84 0.1.288171.3.579.2.1242 1968 Unknown [id number] 2.16.84 0.1.468007.3.579.2.1242 Unknown [id number] Unknown [id number] 2.16.8 40.1.813158.3.579.2.443 Social History Date Type Detail Facility Start: 03-31-2023 End: 05-27-2023 Daily caffeine consumption Daily caffeine consumption [facility] 300 Work Phone: Start: 08-29-2021 Alcohol intake (observable entity) Alcohol Use Details [facility] Start: 08-29-2021 Health-related behavior (observable entity) Caffeine Use Details [facility] Start: 08-29-2021 Tobacco use and exposure Non-Smoking Tobacco Use Details [facility] Sex Assigned At Female [facility] Start: 10-09-2021 End: 08-17-2022 Tobacco smoking status NHIS Unknown if ever smoked [facility] Start: 10-09-2021 Alcohol intake Alcohol Use Details [facility] Start: 03-31-2023 End: 05-27-2023 Tobacco use panel [facility] Work Phone: Start: 1970 Sex Assigned At Not on file [facility] Work Phone: Start: 03-21-2023 End: 03-31-2023 Exposure to SARS-CoV-2 (event) Not sure [facility] Start: 03-31-2023 Tobacco smoking status NHIS Never smoked tobacco [facility] Work Phone: Start: 03-31-2023 Tobacco use and exposure Smokeless tobacco non-user [facility] Work Phone: Start: 05-27-2023 Alcohol intake Ex-drinker (finding) [facility] Work Phone: Start: 05-17-2023 End: 05-27-2023 Exposure to SARS-CoV-2 (event) Yes [facility] NEGATED: Highlighted rowStart: 08-29-2021 End: 05-20-2023 Tobacco smoking status NHIS [facility] NEGATED: Highlighted rowStart: 08-29-2021 History of tobacco use Current non-smoker [facility] Medical Equipment Procedure Code Equipment Code Equipment Origin al Text Equipment Identifier Dates Start: 01-11-2019 End: 07-14-2022 Clinical Notes 03-14-2021 to 05-27-2023 Jocelynn Jimbo LIAN Gong - 05/27/2023 4:35 PM EST Note Date & Type Note Facility 05-27-2023 History of Present illness Narrative [facility] LIAN Mccormick Visit Note - 05/27/2023 5:23 PM This note was generated with voice recognition software and may contain errors including spelling, grammar, syntax, and misrecognization of what was dictated. Patient: Amanda Gill, , 52 y.o., female PCP: LIAN Mayfield --- ALLERGIES: Allergies Allergen Reactions Penicillins Anaphylaxis CURRENT MEDICATIONS: Current Outpatient Medications Medication Instructions ALBUTEROL INHL inhalation albuterol 2.5 mg, nebulization, Every 6 hours PRN azithromycin (Zithromax Z-Rafiq) 250 mg tablet Take 2 tablets by mouth at once on day 1, then 1 tablet once a day on days 2-5. Take with a meal. benzonatate (TESSALON) 100-200 mg, oral, Every 8 hours PRN, Do not crush or chew. dulaglutide (Trulicity) 3 mg/0.5 mL pen injector subcutaneous predniSONE (DELTASONE) 20 mg, oral, Daily traZODone (DESYREL) 50 mg, oral, Nightly traZODone (DESYREL) 50 mg, oral, Nightly --- PAST MEDICAL HX: Patient Active Problem List Diagnosis History of kidney stones Nocturia SURGICAL HX: Past Surgical History: Procedure Laterality Date OTHER SURGICAL HISTORY 03/04/2021 Knee arthroscopy FAMILY HX: No pertinent history. SOCIAL HX: reports that she has never smoked. She has never used smokeless tobacco. --- CHIEF COMPLAINT: Chief Complaint Patient presents with Sore Throat Sore throat, cough, congestion X 1 week HISTORY OF PRESENT ILLNESS: The history was obtained from patient. Amanda is a 52 y.o. female, who presents with a chief complaint of a sore throat, harsh, persistent, productive cough with green phlegm , and sinus pressure/nasal congestion (green mucus) - sxs started 2-3 weeks ago, although got worse again over the past few days. Has also had headaches, bilat ear pain, body aches, and intermittent wheezing. Denies any fevers/chills, abdominal pain, chest pain, shortness of breath, rashes, urinary symptoms, nausea/vomiting, and diarrhea. Denies any lightheadedness or dizziness; no changes in mental status. No swelling in legs. Appetite is normal and is able to eat and drink fluids without difficulty; reports has noticed diminished sense of taste or smell. Reports symptoms have gotten worse since onset. Has been taking tessalon pearles and Mucinex with some temporary relief; no other stii-bgl-olxjqyf medications or home remedies for symptom management. Reports several coworkers have recently been sick (one recently returned from [place]); no other known ill contacts. Has received the COVID vaccine x 1 . Last known COVID infection was in 2021 . Is a former smoker. Has history of asthma - reports ran out of nebulizer albuterol. REVIEW OF SYSTEMS: 10 systems reviewed negative with exception of history of present illness as listed above. TODAY'S VITALS: BP 118/81 Pulse 92 Temp 36.6 C (97.8 F) Resp 16 Ht 1.524 m (5') Wt 78.5 kg (173 lb) LMP (LMP Unknown) SpO2 96% BMI 33.79 kg/m PHYSICAL EXAMINATION: General: Mildly ill-appearing, well nourished female; alert and oriented; in no acute distress. Sitting comfortably on exam table. Non-dyspneic. Accompanied by her , who helps to provide complete history. Eyes: Pupils equal, round and reactive to light. No conjunctival erythema; no scleral icterus. HENT: + frontal and maxillary sinus tenderness; + audible nasal congestion. Airway patent, Bilat TMs unremarkable, ear canals clear/unremarkable bilaterally. Nasal mucosa mildly injected and edematous. Oral mucosa moist. Posterior pharynx mildly injected but without vesicles or oropharyngeal exudate aside from PND. Uvula is midline. Managing oral secretions without difficulty. Neck: Supple. Mildly tender, mobile anterior cervical lymphadenopathy bilat. Trachea is midline. Respiratory: Respirations easy and unlabored, Breath sounds equal. Lungs clear to auscultation; no wheezing, rhonchi, or rales. Has good air movement throughout. Harsh, semi-productive cough noted. Non-dyspneic with ambulation; able to maintain SpO2. Cardiovascular: Normal rate, Regular rhythm. Normal S1S2. No m/r/g. No peripheral edema. Gastrointestinal: Soft, non-tender, non-distended; no palpable masses or organomegaly. Bowel sounds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 Mother(V17.7, Z82.61) Status:Active Family Member Type Diagnosis Age At Onset Mother Problem (finding) Alive and well Father Problem (finding) Family history of raise d blood lipids Sonx 3 Problem (finding) all alive and well Mother Problem (finding) breast Sister Problem (finding) Alive and well Mother Problem (finding) Allergies Mother Problem (finding) Family history of asthm a Father Problem (finding) Family history of hyper tension Daughters x 8 Problem (finding) alive and well Unknown Family Member Name Dates Details Malignant neoplasm of left f emale breast, unspecified estrogen receptor status, unspecified site of breast: Mother Status:Active Family history of hypertensi on: Father(V17.49, Z82.49) Status:Active Family history of arthritis: Father, Mother(V17.7, Z82.61) Status:Active Unknown Family Member Name Dates Details Malignant neoplasm of left f emale breast, unspecified estrogen receptor status, unspecified site of breast: Mother Status:Active Family history of hypertensi on: Father(V17.49, Z82.49) Status:Active Family history of arthritis: Father, Mother(V17.7, Z82.61) Status:Active Unknown Family Member Name Dates Details Malignant neoplasm of left f emale breast, unspecified estrogen receptor status, unspecified site of breast: Mother Status:Active Family history of hypertensi on: Father(V17.49, Z82.49) Status:Active Family history of arthritis: Father, Mother(V17.7, Z82.61) Status:Active Unknown Family Member Name Dates Details Malignant neoplasm of left f emale breast, unspecified estrogen receptor status, unspecified site of breast: Mother Status:Active Family history of hypertensi on: Father(V17.49, Z82.49) Status:Active Family history of arthritis: Father, Mother(V17.7, Z82.61) Status:Active Family Member Type Diagnosis Age At Onset Mother Problem (finding) Alive and well Father Problem (finding) raised blood lipids Sonx 3 Problem (finding) all alive and well Mother Problem (finding) breast Sister Problem (finding) Alive and well Mother Problem (finding) Allergies Mother Problem (finding) asthma Father Problem (finding) hypertension Daughters x 8 Problem (finding) alive and well Unknown Family Member Name Dates Details Malignant neoplasm of left f emale breast, unspecified estrogen receptor status, unspecified site of breast: Mother Status:Active Family history of hypertensi on: Father(V17.49, Z82.49) Status:Active Family history of arthritis: Father, Mother(V17.7, Z82.61) Status:Active Unknown Family Member Name Dates Details Family history of arthritis: Father, Mother(V17.7, Z82.61) Status:Active Family history of hypertensi on: Father(V17.49, Z82.49) Status:Active Malignant neoplasm of left f emale breast, unspecified estrogen receptor status, unspecified site of breast: Mother Status:Active Unknown Family Member Name Dates Details Malignant neoplasm of left f emale breast, unspecified estrogen receptor status, unspecified site of breast: Mother Status:Active Family history of hypertensi on: Father(V17.49, Z82.49) Status:Active Family history of arthritis: Father, Mother(V17.7, Z82.61) Status:Active Unknown Family Member Name Dates Details Malignant neoplasm of left f emale breast, unspecified estrogen receptor status, unspecified site of breast: Mother Status:Active Family history of hypertensi on: Father(V17.49, Z82.49) Status:Active Family history of arthritis: Father, Mother(V17.7, Z82.61) Status:Active Unknown Family Member Name Dates Details Malignant neoplasm of left f emale breast, unspecified estrogen receptor status, unspecified site of breast: Mother Status:Active Family history of hypertensi on: Father(V17.49, Z82.49) Status:Active Family history of arthritis: Father, Mother(V17.7, Z82.61) Status:Active Advance Directives Directive Yes / No Effective Date File Name No Information Chief Complaint C/O right shoulder pain, mild x 10 years but worsening for past year.MRI RESULTS R SHOULDER, PAIN 4-5 / 10Patient reports still cannot lie down on right shoulder to sleep. Gets better relief when using thecombination of topical cream and the Meloxicam. NEW PROBLEM: Possibly pulled right groin x 10 days,going up steps primarily exacerbated recently with tripping over the dog 2 days ago. Patient reports still cannot lie down on right shoulder to sleep. Gets better relief when using thecombination of topical cream and the Meloxicam. NEW PROBLEM: Possibly pulled right groin x 10 days,going up steps primarily exacerbated recently with tripping over the dog 2 days ago.PATIENT HERE TODAY FOR POST MENOPAUSAL BLEEDING. PT REPORTS ONE EPISODE OF BRIGHT RED BLEEDING 1 MONTH AGO WITH PELVIC PRESSURE. NO OTHER EPISODES SINCE. COMPLAINS OF ACHY OVARIES/PELVIC PAIN. NO PREVIOUS TESTING EXCEPT BLOOD WORK TO STATE SHE WAS ALMOST IN MENOPAUSE. LMP: 2008* F/U BILAT SHOULDER PAIN * XRAY ON LEFT, REVIEW * NO MASSAGE THERAPY * PAIN 03/23 Stent Removal-Left Ureteral stone Chief Complaint and Reason for Visit From encounter dated '08/29/2021 08:35'. problem (chief complaint). Description: pt can't stand herself any more, hard time focusing, misplacing things, forgetting things and she took a quiz for ADHA score was 8 out of 10, she is always thinking From encounter dated '10/03/2021 09:11'. Mental Health (chief complaint). Description: PT says she stopped the new medication 4 days after taking , she says this increased her anxiety, she is seeing a counselor has an appt today after work . No Information No Information No Information From encounter dated '10/30/2021 16:00'. problem (chief complaint). Description: Lt hand pain that is chronic. 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 Pain located around left thumb. Pain to movement. Compression stockings helps some. No Information No Information No Information No Information From encounter dated '01/28/2022 10:30'. annual wellness visit (chief complaint). Description: Patient's Ripton 10- year Risk of Developing Hard CHD (Myocardial Infarction and Coronary ) is 3%. Relevant history is positive for alcohol use. Relevant history is negative for tobacco use, passive vaping exposure and passive smoke exposure. L knee pain (chief complaint). Description: States that she has chronic L knee pain. Admits to anterior knee pain and stability. She [facility] She states thatshe has had to have arthroscope in the past. Takes mobic prn with mild relief. No Information No Information No Information No Information No Information No Information No Information No Information No Information No Information No Information No Information No Information No Information No Information No Information No Information No Information No Information No Information From encounter dated '05/20/2023 09:15'. thumb pain (chief complaint). Description: Severity level is moderate-severe. The problem is worsening. Location: left. Additional information: States it has bothered her for years, had injection in right thumb and would like injection in left one. Physical Exam Exam Findings Details Psychiatric Normal Orientation - Or iented to time, place, person & situation. Psychiatric * Anxious. Exam Findings Details Psychiatric * Anxious. Increas ed activity. Psychiatric Normal Orientation - Or iented to time, place, person & situation. Exam Findings Details No Information Exam Findings Details Respiratory Normal Effort - Normal. Psychiatric Normal Orientation - Or iented to time, place, person & situation. Appropriate mood and affect. Hand - L Comments Pain to palpate CMC jt of left hand. Neg finklestein test of left wrist. Exam Findings Details Respiratory Normal Auscultation - N ormal. Effort - Normal. Extremity Normal No edema. Abdomen Normal Inspection - Nor mal. Auscultation - Normal. No abdominal tenderness. Musculoskeletal Normal Visual overview of all four extremities is normal. Skin Normal Inspection - Nor mal. Neurological Normal Memory - Normal. Cranial nerves - Cranial nerves II through XII grossly intact. Psychiatric Normal Orientation - Or iented to time, place, person & situation. Appropriate mood and affect. Cardiovascular Normal Regular rate and rhythm. No murmurs, gallops, or rubs. Exam Findings Details Musculoskeletal Comments Tender to palpat e left CMC joint of hand with crepitus with passive ROM. Psychiatric Normal Orientation - Or iented to time, place, person & situation. Appropriate mood and affect. Reason for Referral Specialty Diagnoses / Procedures Referred By Frank mccray Referred To Contact Radiology Diagnoses Calculus of kidney Procedures US renal complete Jarett Magana MD [facility] [id number] [place] [address] Referral ID Status Reason Start Date Expiration Date Visits Requested Visits Authorized [id number] Pending Review Perform Procedure 02/25/2023 08/24/2023 1 1 Additional Source Comments INFORMATION SOURCE (unrecogn ized section and content) DATE CREATED AUTHOR AUTHOR'S ORGANIZ ATION 05/06/2022 [facility] DATE CREATED AUTHOR AUTHOR'S ORGANIZ ATION 12/04/2022 [employer] DATE CREATED AUTHOR AUTHOR'S ORGANIZ ATION 12/08/2022 [facility] DATE CREATED AUTHOR AUTHOR'S ORGANIZ ATION 01/21/2023 [facility] DATE CREATED AUTHOR AUTHOR'S ORGANIZ ATION 05/22/2023 [facility] DATE CREATED AUTHOR AUTHOR'S ORGANIZ ATION 05/29/2023 [facility] <item> Privacy Markings (unrecogniz ed section and content) Section Author: Dania Braxton PROHIBITION ON REDISCLOSURE OF CONFIDENTIAL INFORMATION This notice accompanies a disclosure of information concerning a client made to you with the consent of such client. Reason for Visit (unrecogniz ed section and content) Referral ID Status Reason Start Date Expiration Date Visits Requested Visits Authorized [id number] Pending Review Perform Procedure 02/25/2023 08/24/2023 1 1 Reason Comments Other Left Ureteroscopy, L eft RPG, with Holmium Laser and Stent Placement / [id number] Reason Comments Sore Throat Sore throat, cough, congestion X 1 week Care Teams (unrecognized sec tion and content) FOR RECORDS PERTAINING TO PATIENTS WHO ARE OR HAVE BEEN ENROLLED IN A CHEMICAL DEPENDENCY/SUBSTANCEABUSE PROGRAM, SOME INFORMATION MAY BE OMITTED. This clinical summary was aggregated from multiple sources. Caution should be exercised in using it in the provision of clinical care. This summary normalizes information from multiple sources, and as a consequence, information in this document may materially change the coding, format and clinical context of patient data. In addition, data may be omitted in some cases. CLINICAL DECISIONS SHOULD BE BASED ON THE PRIMARY CLINICAL RECORDS. [employer] provides no warranty or guarantee of the accuracy or completeness of information in this document.
[2023-06-24 16:14] LABS: HPV Reflexed? NOT INDICATED
== END | disposition home or self-care (01) ==
PROVIDERS: PCP Nurse Practitioner; Visit Provider Nurse Practitioner
DX: Z01.419 Encounter for gynecological examination (general) (routine) without abnormal findings (principal)
CPT/HCPCS: 88175; G0145